=== PATIENT | female | born 1990 | race Caucasian/White ===

== ENCOUNTER 2021-10-01 18:23 | Emergency (ER) | payer SELFPAY ==
[2021-10-01 19:45] LABS: CORONAVIRUS COVID-19 NAA NEGATIVE (NEGATIVE)
[2021-10-01] MEDS ORDERED: Ondansetron 4 MG/2 ML SDV IVPUSH ONE (19:51)
[2021-10-01] MEDS ORDERED: HYDROmorphone 0.5 MG/0.5 ML Syringe IVPUSH ONE (19:51)
[2021-10-01] MEDS ORDERED: Nitrofurantoin Monohydrate/Macrocrystalline 100 MG Cap PO STA (19:51)
--- NOTE | 2021-10-01 19:57 | EDM.PDOC ---
ED HPI GENERAL MEDICAL PROBLEM - General Chief Complaint: Gastrointestinal Problem Stated Complaint: R SIDE ABDOMINAL PAIN Time Seen by Provider: 10/01/21 19:30 Source of Information: Reports: Patient, Significant Other (Boyfriend) History Limitations: Reports: No Limitations - History of Present Illness INITIAL COMMENTS - FREE TEXT/NARRATIVE: Ms. Bello is a very pleasant 31-year-old woman who now presents the ED stating that she developed sharp/stabbing right lower quadrant/pelvic pain 4 days ago, on 09/28/2021, which has been coming and going ever since. When present, it last for a few hours, then recurs within less than 1 hour. She has not identified any modifiers. She had some watery diarrhea on the second day of her symptoms, but has felt constipated since. No associated dysuria or urinary frequency. The patient states that she has been taking acetaminophen, and also took some omeprazole, which did not help her symptoms. The patient states that she has had similar symptoms many times in the past. Her LMP was approximately 09/18/2021. At triage, the patient was found to be hemodynamically stable, afebrile, saturating 93% on room air. She appears to be comfortable, in no acute distress. Her last oral intake was around 14:00 this afternoon. Prior to Monday, the patient denies having a recent fever, chills, sore throat, ear pain, nasal or sinus congestion, cough, dyspnea, chest pain, palpitations, nausea, vomiting, constipation, diarrhea, abdominal pain, urinary symptoms, recent weight gain or weight loss, recent bloody bowel movements or black bowel movements, recent joint aches, headaches, or rashes. The patient does not have a PCP or [facility]. She has not received a COVID vaccination, nor an influenza vaccination this se ason. Abdominal Pain Score (Numeric/FACES): 3 - Related Data Allergies Allergy/AdvReac Type Severity Reaction Status Date / Time No Known Allergies Allergy Verified 10/01/21 20:14 Home Meds: Home Meds Levofloxacin 1 tab PO QPM #6 tablet 10/01/21 [Rx] Past Medical History - Past Surgical History HEENT Surgical History: Reports: Oral Surgery (dental extractions) Cardiovascular Surgical History: Reports: Other (See Below) (Coronary angiogram at 15 years old -> clean) Social & Family History - Tobacco Use Tobacco Use Status *Q: Current Every Day Tobacco User Years of Tobacco use: 15 Packs/Tins Daily: 0.5 Packs/Tins Daily Comment: Down from 1 ppd Tobacco Use Comment: Started smoking 2006 - Caffeine Use Caffeine Use: Reports: Coffee, Energy Drinks, Soda - Alcohol Use Alcohol Use History: Yes Alcohol Use Frequency: Socially (occasionally to excess) - Recreational Drug Use Recreational Drug Use: Yes Drug Use in Last 12 Months: Yes Recreational Drug Type: Reports: Cocaine (last snorted around 2016), Marijuana/Hashish (smokes every other day) - Living Situation & Occupation Living situation: Reports: Single, with Family Occupation: Employed ([employer]) ED ROS GENERAL - Review of Systems Review Of Systems: Comprehensive ROS is negative, except as noted in HPI. ED EXAM, GI/ABD - Physical Exam Exam: See Below Exam Limited By: No Limitations General Appearance: Alert, No Apparent Distress, Thin Eyes: Bilateral: Normal Appearance, EOMI Ears: Normal External Exam, Hearing Grossly Normal Nose: Normal Inspection Throat/Mouth: Normal Inspection, Normal Lips, Normal Voice, No Airway Compromise Head: Atraumatic, Normocephalic Neck: Normal Inspection, Full Range of Motion Respiratory/Chest: No Respiratory Distress, Lungs Clear, Normal Breath Sounds, No Accessory Muscle Use Cardiovascular: Normal Peripheral Pulses, Regular Rate, Rhythm, No Edema, No Gallop, No JVD, No Murmur, No Rub GI/Abdominal Exam: Normal Bowel Sounds, Soft, No Organomegaly, No Distention, No Abnormal Bruit, No Mass, Tender (The greatest tenderness is in the right pelvis, with additional tenderness suprapubically. Essentially nontender elsewhere. Rovsing's sign, obturator sign, and psoas sign absent. Mild pain elicited with heel drop.) Back Exam: Normal Inspection, Full Range of Motion, CVA Tenderness (R). No: CVA Tenderness (L) Extremities: Normal Inspection, Normal Range of Motion, No Pedal Edema, Normal Capillary Refill Neurological: Alert, Oriented, Normal Cognition, No Motor/Sensory Deficits Psychiatric: Normal Affect Skin Exam: Warm, Dry, Intact, Normal Color, No Rash Course - Vital Signs Last Recorded V/S: Last Vital Signs Temp 36.7 C 10/01/21 19:03 Pulse 94 10/01/21 19:03 Resp 15 10/01/21 19:03 BP 122/83 10/01/21 19:03 Pulse Ox 93 L 10/01/21 19:03 - Orders/Labs/Meds Orders: Active Orders 24 hr Category Date Time Status Abdomen Pelvis w Cont [CT] Stat Exams 10/01/21 19:50 Taken CULTURE URINE [MREF] Stat Lab 10/01/21 18:56 Received Sodium Chloride 0.9% [Normal Saline] 1,000 ml Med 10/01/21 20:00 Active IV ASDIRECTED Medication Orders Sodium Chloride (Normal Saline) 1,000 mls @ 150 mls/hr IV ASDIRECTED ADAM Last Admin: 10/01/21 20:15 Dose: 150 mls/hr Documented by: DOMINGO Labs: Laboratory Tests 10/01/21 10/01/21 10/01/21 Range/Units 18:56 18:56 18:56 WBC (3.98-10.04) K/mm3 RBC (3.98-5.22) M/mm3 Hgb (11.2-15.7) gm/dl Hct (34.1-44.9) % MCV (79.4-94.8) fl MCH (25.6-32.2) pg MCHC (32.2-35.5) g/dl RDW Std Deviation (36.4-46.3) fL Plt Count (182-369) K/mm3 MPV (9.4-12.3) fl Neutrophils % (Manual) (40-60) % Band Neutrophils % (0-10) % Lymphocytes % (Manual) (20-40) % Atypical Lymphs % % Monocytes % (Manual) (2-10) % Eosinophils % (Manual) (0.7-5.8) % Basophils % (Manual) (0.1-1.2) Platelet Estimate RBC Morph Comment Sodium (136-145) mEq/L Potassium (3.5-5.1) mEq/L Chloride (98-107) mEq/L Carbon Dioxide (21-32) mEq/L Anion Gap (5-15) BUN (7-18) mg/dL Creatinine (0.55-1.02) mg/dL Est Cr Clr Drug Dosing Estimated GFR (MDRD) (>60) mL/min BUN/Creatinine Ratio (14-18) Glucose (70-99) mg/dL Calcium (8.5-10.1) mg/dL Urine Color Yellow (Yellow) Urine Appearance Cloudy H (Clear) Urine pH 6.0 (5.0-8.0) Ur Specific [place] 1.020 (1.005-1.030) Urine Protein 1+ H (Negative) Urine Glucose (UA) Negative (Negative) Urine Ketones Trace H (Negative) Urine Occult Blood Trace-intact H (Negative) Urine Nitrite Positive H (Negative) Urine Bilirubin Negative (Negative) Urine Urobilinogen 1.0 (0.2-1.0) Ur Leukocyte Esterase 1+ H (Negative) Urine RBC 5-10 H (0-5) /hpf Urine WBC 50-75 H (0-5) /hpf Ur Squamous Epith Cells 10-20 H (0-5) /hpf Urine Bacteria Many H (FEW) /hpf Urine Mucus Few (FEW) /hpf Urine HCG, Qual Negative (NEGATIVE) Influenza Type A RNA Negative (NEGATIVE) Influenza Type B RNA Negative (NEGATIVE) SARS-CoV-2 RNA (SANJEEV) Negative (NEGATIVE) 10/01/21 10/01/21 Range/Units 20:00 20:00 WBC 14.32 H (3.98-10.04) K/mm3 RBC 4.49 (3.98-5.22) M/mm3 Hgb 13.8 (11.2-15.7) gm/dl Hct 41.7 (34.1-44.9) % MCV 92.9 (79.4-94.8) fl MCH 30.7 (25.6-32.2) pg MCHC 33.1 (32.2-35.5) g/dl RDW Std Deviation 41.9 (36.4-46.3) fL Plt Count 173 L (182-369) K/mm3 MPV 10.4 (9.4-12.3) fl Neutrophils % (Manual) 89 H (40-60) % Band Neutrophils % 2 (0-10) % Lymphocytes % (Manual) 6 L (20-40) % Atypical Lymphs % 2 % Monocytes % (Manual) 1 L (2-10) % Eosinophils % (Manual) 0 L (0.7-5.8) % Basophils % (Manual) 0 L (0.1-1.2) Platelet Estimate Adequate RBC Morph Comment Normal Sodium 138 (136-145) mEq/L Potassium 3.6 (3.5-5.1) mEq/L Chloride 100 (98-107) mEq/L Carbon Dioxide 27 (21-32) mEq/L Anion Gap 14.6 (5-15) BUN 10 (7-18) mg/dL Creatinine 0.9 (0.55-1.02) mg/dL Est Cr Clr Drug Dosing TNP Estimated GFR (MDRD) > 60 (>60) mL/min BUN/Creatinine Ratio 11.1 L (14-18) Glucose 96 (70-99) mg/dL Calcium 8.9 (8.5-10.1) mg/dL Urine Color (Yellow) Urine Appearance (Clear) Urine pH (5.0-8.0) Ur Specific [place] (1.005-1.030) Urine Protein (Negative) Urine Glucose (UA) (Negative) Urine Ketones (Negative) Urine Occult Blood (Negative) Urine Nitrite (Negative) Urine Bilirubin (Negative) Urine Urobilinogen (0.2-1.0) Ur Leukocyte Esterase (Negative) Urine RBC (0-5) /hpf Urine WBC (0-5) /hpf Ur Squamous Epith Cells (0-5) /hpf Urine Bacteria (FEW) /hpf Urine Mucus (FEW) /hpf Urine HCG, Qual (NEGATIVE) Influenza Type A RNA (NEGATIVE) Influenza Type B RNA (NEGATIVE) SARS-CoV-2 RNA (SANJEEV) (NEGATIVE) Meds: Medications Generic Name Dose Route Start Last Admin Trade Name Freq PRN Reason Stop Dose Admin Sodium Chloride 1,000 mls @ 150 mls/hr 10/01/21 20:00 10/01/21 20:15 Normal Saline IV 150 mls/hr ASDIRECTED ADAM Administration Discontinued Medications Generic Name Dose Route Start Last Admin Trade Name Freq PRN Reason Stop Dose Admin Diatrizoate Meglum/Diatrizoate Sod 120 ml 10/01/21 21:07 10/01/21 21:08 Diatrizoate Meglumine/Diatrizoate Sodium 37% 120 Ml Bottle PO 10/01/21 21:08 60 ml ONETIME ONE Administration Hydromorphone HCl 0.5 mg 10/01/21 19:51 10/01/21 20:17 Hydromorphone 0.5 Mg/0.5 Ml Syringe IVPUSH 01/07/22 19:52 0.5 mg ONETIME ONE Administration Iopamidol 100 ml 10/01/21 19:58 10/01/21 21:08 Iopamidol 612 Mg/Ml 100 Ml Bottle IVPUSH 10/01/21 19:59 100 ml ONETIME ONE Administration Levofloxacin 750 mg 10/01/21 23:16 Levofloxacin 750 Mg Tab PO 10/01/21 23:17 ONETIME STA Nitrofurantoin Macrocrystals 100 mg 10/01/21 19:51 10/01/21 20:15 Nitrofurantoin Monohydrate/Macrocrystalline 100 Mg Cap PO 10/01/21 19:52 100 mg ONETIME STA Administration Ondansetron HCl 4 mg 10/01/21 19:51 10/01/21 20:16 Ondansetron 4 Mg/2 Ml Sdv IVPUSH 10/01/21 19:52 4 mg ONETIME ONE Administration Sodium Chloride 10 ml 10/01/21 19:58 10/01/21 21:09 Sodium Chloride 0.9% 10 Ml Sdv FLUSH 10/01/21 19:59 10 ml ONETIME ONE Administration - Re-Assessments/Exams Free Text/Narrative Re-Assessment/Exam: 10/01/21 19:52 A urinalysis, urine test, and swab for the SARS-CoV-2 virus and influenza A + B viruses was obtained at triage. The urinalysis is remarkable for trace occult blood with 5-10 RBCs, 1+ leukocyte esterase with 50-75 WBCs, nitrate positive with many bacteria, and 10-20 squamous epithelial cells. The urine test is negative. The swab for the SARS-CoV-2 virus and influenza A + B viruses is negative. The urinalysis is consistent with a UTI. A urine culture has been ordered. The patient's physical exam suggests a right ovarian cyst, given the location of her main pain, while the right CVA tenderness is more suggestive of pyelonephritis, however, the patient has not had a fever or recent nausea or vomiting, and until I percussed her right flank, she had not mentioned anything about having right flank pain. Additionally, I cannot rule out appendicitis, therefore I have ordered some blood work and a CT of the abdomen and pelvis with oral and IV contrast to make sure. In the meantime, the patient will be treated with some IV Dilaudid, IV Zofran, IV fluid, and oral nitrofurantoin. 10/01/21 21:09 The patient's CBC is remarkable for mild leukocytosis of 14.32, and mild thrombocytopenia of 173,000, and is otherwise unremarkable. Her BMP is unremarkable. 10/01/21 23:13 CT of the abdomen and pelvis with oral and IV contrast is read by [facility] as: 1. Abnormal right nephrogram most compatible with pyelonephritis, please correlate clinically. 2. No evidence for acute appendicitis. Based on the above, I will start the patient on levofloxacin. 10/01/21 23:20 Test results discussed with the patient. As above, it appears that the patient is suffering from right pyelonephritis. I will submit a prescription for levofloxacin for the patient to complete a 7-day course. She is to stay adequately hydrated. She may take OTC ibuprofen as needed for discomfort. Departure - Departure Time of Disposition: 23:22 Disposition: Home, Self-Care 01 Condition: Good Clinical Impression: Pyelonephritis of right kidney - Discharge Information *PRESCRIPTION DRUG MONITORING PROGRAM REVIEWED*: Not Applicable *COPY OF PRESCRIPTION DRUG MONITORING REPORT IN PATIENT INGRID: Not Applicable Referrals: PCP,Not In Area [Primary Care Provider] - Forms: ED Department Discharge Additional Instructions: You were seen in the emergency room after developing sharp/stabbing lower right abdominal pain on Monday. Work-up in the ER included several blood tests, a urinalysis, a urine test, a swab for the SARS-CoV-2 virus and influenza A + B viruses, and a CT of your abdomen and pelvis with oral and IV contrast. Your urinalysis indicated that you have a urinary tract infection, and the CT scan found that the infection went up to your right kidney, a condition known as pyelonephritis. You have been started on the antibiotic levofloxacin (Levaquin), and a prescription for levofloxacin has been sent to the [facility], located just south and across the [address] from [facility]. Take 1 tablet of levofloxacin every evening, starting tomorrow evening, 10/02/2021, as prescribed. Finish the entire prescription unless told otherwise by a doctor. Stay adequately hydrated. It does not really matter what type of fluid you drink. If any other problems, including worsening of your symptoms, or vomiting such that you cannot keep the levofloxacin down, please do not hesitate to return to the ER. Sepsis Event Note (ED) - Focused Exam Vital Signs: Vital Signs Temp Pulse Resp BP Pulse Ox 10/01/21 19:03 36.7 C 94 15 122/83 93 L - My Orders Last 24 Hours: My Active Orders 10/01/21 19:50 Abdomen Pelvis w Cont [CT] Stat 10/01/21 20:00 Sodium Chloride 0.9% [Normal Saline] 1,000 ml IV ASDIRECTED - Assessment/Plan Last 24 Hours: My Active Orders 10/01/21 19:50 Abdomen Pelvis w Cont [CT] Stat 10/01/21 20:00 Sodium Chloride 0.9% [Normal Saline] 1,000 ml IV ASDIRECTED
[2021-10-01] MEDS ORDERED: Iopamidol 612 MG/ML 100 ML Bottle IVPUSH ONE (19:58)
[2021-10-01] MEDS ORDERED: Sodium Chloride 0.9% 1,000 ML IV SCH (20:00)
[2021-10-01] MEDS: Sodium Chloride 0.9% 10 ML SDV FLUSH ONE ×2 (20:19→21:09)
[2021-10-01] MEDS ORDERED: Diatrizoate Meglumine/Diatrizoate Sodium 37% 120 ML Bottle PO ONE (21:07)
[2021-10-01] MEDS ORDERED: Levofloxacin 750 MG Tab PO STA (23:16)
--- NOTE | 2021-10-04 08:49 | CT ---
EXAM: CT ABDOMEN PELVIS WITH CONTRAST LOCATION: [facility] DATE/TIME: 10/01/2021 8:00 PM INDICATION: Rlq pain and tenderness. nausea and vomiting. eval for appendicitis COMPARISON: None. TECHNIQUE: CT scan of the abdomen and pelvis was performed following injection of IV contrast. Multiplanar reformats were obtained. Dose reduction techniques were used. CONTRAST: Isovue 300 95mL FINDINGS: LOWER CHEST: Normal. HEPATOBILIARY: Normal. PANCREAS: Normal. SPLEEN: Normal. ADRENAL GLANDS: Normal. KIDNEYS/BLADDER: Heterogeneous right nephrogram with alternating areas of normal normal in decreased parenchymal enhancement. No hydronephrosis. Left kidney appears normal. Urinary bladder appears normal. No urinary tract calcification although decreased sensitivity secondary to excreted contrast in the collecting systems and ureters. BOWEL: No free air, free fluid, or inflammatory change. Normal caliber appendix. No obstruction. LYMPH NODES: Normal. VASCULATURE: Unremarkable. PELVIC ORGANS: Normal. MUSCULOSKELETAL: Normal. IMPRESSION: 1. Abnormal right nephrogram most compatible with pyelonephritis, please correlate clinically. 2. No evidence for acute appendicitis. SIGNED BY: Teo Garrido MD 10/01/2021 10:25 PM [facility]
== END 2021-10-01 23:35 | disposition home or self-care (01) ==
LOC: JD.ED 18:23
DX: N12 Tubulo-interstitial nephritis, not specified as acute or chronic (principal); Z72.0 Tobacco use; Z20.822 Contact with and (suspected) exposure to COVID-19
CPT/HCPCS: 0240U; 36415; 74177; 80048; 81001; 81025; 85007; 85027; 87086; 87088; 87186; 96374; 96375; 99284; A9270; J1170; J2405; J7030; Q9963; Q9967; 99285

== ENCOUNTER 2021-10-23 03:23 | Emergency (ER) | payer BC ==
[2021-10-23] MEDS ORDERED: Acetaminophen 325 MG Tab PO ONE (04:24)
== END 2021-10-23 06:17 | disposition home or self-care (01) ==
LOC: JD.ED 03:23
DX: S09.90XA Unspecified injury of head, initial encounter (principal); S00.12XA Contusion of left eyelid and periocular area, initial encounter; H11.32 Conjunctival hemorrhage, left eye; Z72.0 Tobacco use; W50.1XXA Accidental kick by another person, initial encounter; Y92.009 Unspecified place in unspecified non-institutional (private) residence as the place of occurrence of the external cause
CPT/HCPCS: 70450; 70486; 99284; A9270; 99283

== ENCOUNTER 2022-03-18 01:23 | Emergency (ER) | payer BC ==
[2022-03-18] MEDS ORDERED: Lidocaine 1% 5 ML VIAL INJECT ONE (02:12)
[2022-03-18] MEDS ORDERED: Ibuprofen 400 MG Tab PO ONE (02:12)
[2022-03-18] MEDS ORDERED: Lidocaine 1% with EPINEPHrine 1:100,000 10 ML MDV INJECT ONE (02:20)
[2022-03-18] MEDS ORDERED: Lidocaine 1% 10 ML MDV INJECT ONE (02:21)
== END 2022-03-18 03:00 | disposition home or self-care (01) ==
LOC: JD.ED 01:23
DX: S01.112A Laceration without foreign body of left eyelid and periocular area, initial encounter (principal); F17.210 Nicotine dependence, cigarettes, uncomplicated; W22.8XXA Striking against or struck by other objects, initial encounter
CPT/HCPCS: 12011; 99282; A9270

== ENCOUNTER 2023-09-05 12:03 | Inpatient (IN) | payer BC, OTHER ==
[2023-09-05] MEDS ORDERED: Sodium Chloride 0.9% 10 ML Syringe FLUSH ONE (12:57)
[2023-09-05] MEDS ORDERED: Iopamidol 612 MG/ML 100 ML Bottle IVPUSH ONE (12:57)
[2023-09-05] MEDS ORDERED: HYDROmorphone 0.5 MG/0.5 ML Syringe IVPUSH ONE (13:57)
[2023-09-05] MEDS ORDERED: Ondansetron 4 MG/2 ML SDV IVPUSH ONE (13:57)
[2023-09-05] MEDS ORDERED: Piperacillin/Tazobactam 4.5 GM in Sodium Chloride 0.9% 100 ML IV ONE (13:59)
[2023-09-05] MEDS ORDERED: Sodium Chloride 0.9% 1,000 ML IV SCH ×2 (14:00→15:45)
[2023-09-05 14:29] LABS: BASOPHILS PERCENT AUTO 0.2 % (0.0-1.0); EOSINOPHILS ABSOLUTE AUTO 0.1 K/mm3 (0.0-0.4); EOSINOPHILS PERCENT AUTO 0.8 % (0.0-6.0); HEMATOCRIT 36.7 % (37.0-47.0); HEMOGLOBIN 12.4 gm/dl (12.0-16.0); IMMATURE GRAN ABSOLUTE AUTO 0.07 K/mm3 (0.00-0.05); IMMATURE GRAN PERCENT AUTO 0.5 % (0.0-0.4); LYMPHOCYTES ABSOLUTE AUTO 1.9 K/mm3 (1.0-4.8); LYMPHOCYTES PERCENT AUTO 12.5 % (24.0-44.0); MEAN CORPUSCULAR HEMOGLOBIN 31.8 pg (28.0-32.0); MEAN CORPUSCULAR HGB CONC 33.8 g/dl (32.0-36.0); MEAN CORPUSCULAR VOLUME 94.1 fl (83.0-99.0); MEAN PLATELET VOLUME 10.1 fl (9.4-12.3); MONOCYTES ABSOLUTE AUTO 1.3 K/mm3 (0.0-0.8); MONOCYTES PERCENT AUTO 8.6 % (0.0-8.0); NEUTROPHILS ABSOLUTE AUTO 11.8 K/mm3 (1.8-7.7); NEUTROPHILS PERCENT AUTO 77.4 % (41.0-71.0); PLATELET COUNT,PLT 233 K/mm3 (150-400); WHITE BLOOD CELL COUNT,WBC 15.25 K/mm3 (3.9-11.3)
[2023-09-05 14:58] LABS: A/G RATIO 0.8 (1-2); ALBUMIN 2.9 g/dl (3.4-5.0); ANION GAP 12.7 (5-15); BILIRUBIN TOTAL 1.1 mg/dL (0.2-1.0); BUN/CREATININE RATIO 8.6 (14-18); CALCIUM 8.5 mg/dL (8.5-10.1); CREATININE 0.7 mg/dL (0.55-1.02); EST CRCL DRUG DOSING (CG) 96.83 mL/min; POTASSIUM,K 3.7 mEq/L (3.5-5.1); PROTEIN TOTAL,TP 6.4 g/dl (6.4-8.2)
[2023-09-05] MEDS ORDERED: Ondansetron 4 MG/2 ML SDV IV PRN (16:11)
[2023-09-05] MEDS ORDERED: oxyCODONE 5 MG Tab PO PRN (16:11)
[2023-09-05] MEDS: Acetaminophen 325 MG Tab PO PRN (16:51)
[2023-09-05] MEDS: Ibuprofen 200 MG Tab PO PRN (19:50)
[2023-09-05] MEDS: Piperacillin/Tazobactam 4.5 GM in Sodium Chloride 0.9% 100 ML IV SCH (22:09)
[2023-09-05] MEDS: oxyCODONE 5 MG Tab PO PRN (22:10)
[2023-09-06] MEDS: oxyCODONE 5 MG Tab PO PRN ×6 (02:21→23:32)
[2023-09-06 05:24] LABS: HEMATOCRIT 34.2 % (37.0-47.0); HEMOGLOBIN 11.4 gm/dl (12.0-16.0); MEAN CORPUSCULAR HEMOGLOBIN 30.9 pg (28.0-32.0); MEAN CORPUSCULAR HGB CONC 33.3 g/dl (32.0-36.0); MEAN CORPUSCULAR VOLUME 92.7 fl (83.0-99.0); MEAN PLATELET VOLUME 10.2 fl (9.4-12.3); PLATELET COUNT,PLT 198 K/mm3 (150-400); RED BLOOD CELL COUNT 3.69 M/mm3 (4.10-5.30); WHITE BLOOD CELL COUNT,WBC 14.47 K/mm3 (3.9-11.3)
[2023-09-06 06:03] LABS: BUN/CREATININE RATIO 7.5 (14-18); C-REACTIVE PROTEIN 8.1 mg/dL (<1.0); CALCIUM 8.3 mg/dL (8.5-10.1); CREATININE 0.8 mg/dL (0.55-1.02); EST CRCL DRUG DOSING (CG) 85.01 mL/min
[2023-09-06] MEDS: Piperacillin/Tazobactam 4.5 GM in Sodium Chloride 0.9% 100 ML IV SCH ×3 (06:17→23:12)
[2023-09-06 06:36] LABS: ANION GAP 8.7 (5-15); POTASSIUM,K 3.7 mEq/L (3.5-5.1)
[2023-09-06] MEDS: Ibuprofen 200 MG Tab PO PRN ×2 (08:11→14:21)
[2023-09-06] MEDS: Acetaminophen 325 MG Tab PO PRN ×3 (08:12→23:31)
[2023-09-06] MEDS: Enoxaparin 40 MG/0.4 ML Syringe SUBCUT SCH (08:12)
[2023-09-06] MEDS ORDERED: methylPREDNISolone Sodium Succinate 125 MG/2 ML SDV IVPUSH ONE (15:00)
[2023-09-07] MEDS: Ibuprofen 200 MG Tab PO PRN ×2 (04:18→22:25)
[2023-09-07 05:25] LABS: ANION GAP 10.2 (5-15); BUN/CREATININE RATIO 8.6 (14-18); C-REACTIVE PROTEIN 10.5 mg/dL (<1.0); CALCIUM 8.7 mg/dL (8.5-10.1); CREATININE 0.7 mg/dL (0.55-1.02); EST CRCL DRUG DOSING (CG) 97.16 mL/min; POTASSIUM,K 4.2 mEq/L (3.5-5.1)
[2023-09-07 05:26] LABS: HEMATOCRIT 34.8 % (37.0-47.0); HEMOGLOBIN 11.8 gm/dl (12.0-16.0); MEAN CORPUSCULAR HEMOGLOBIN 30.9 pg (28.0-32.0); MEAN CORPUSCULAR HGB CONC 33.9 g/dl (32.0-36.0); MEAN CORPUSCULAR VOLUME 91.1 fl (83.0-99.0); MEAN PLATELET VOLUME 10.5 fl (9.4-12.3); PLATELET COUNT,PLT 239 K/mm3 (150-400); RED BLOOD CELL COUNT 3.82 M/mm3 (4.10-5.30); WHITE BLOOD CELL COUNT,WBC 14.08 K/mm3 (3.9-11.3)
[2023-09-07] MEDS: Piperacillin/Tazobactam 4.5 GM in Sodium Chloride 0.9% 100 ML IV SCH ×3 (06:42→22:24)
[2023-09-07] MEDS: Acetaminophen 325 MG Tab PO PRN ×4 (06:53→20:09)
[2023-09-07] MEDS: oxyCODONE 5 MG Tab PO PRN ×4 (06:53→20:09)
[2023-09-07] MEDS: Enoxaparin 40 MG/0.4 ML Syringe SUBCUT SCH (09:00)
[2023-09-08] MEDS: Acetaminophen 325 MG Tab PO PRN ×4 (03:52→22:18)
[2023-09-08] MEDS: oxyCODONE 5 MG Tab PO PRN ×5 (03:53→22:17)
[2023-09-08 05:25] LABS: ANION GAP 10.8 (5-15); BUN/CREATININE RATIO 13.8 (14-18); C-REACTIVE PROTEIN 3.9 mg/dL (<1.0); CALCIUM 8.5 mg/dL (8.5-10.1); CREATININE 0.8 mg/dL (0.55-1.02); EST CRCL DRUG DOSING (CG) 85.74 mL/min; POTASSIUM,K 3.8 mEq/L (3.5-5.1)
[2023-09-08 05:59] LABS: HEMATOCRIT 33.9 % (37.0-47.0); HEMOGLOBIN 11.4 gm/dl (12.0-16.0); MEAN CORPUSCULAR HEMOGLOBIN 31.9 pg (28.0-32.0); MEAN CORPUSCULAR HGB CONC 33.6 g/dl (32.0-36.0); MEAN PLATELET VOLUME 10.4 fl (9.4-12.3); PLATELET COUNT,PLT 216 K/mm3 (150-400); RED BLOOD CELL COUNT 3.57 M/mm3 (4.10-5.30); WHITE BLOOD CELL COUNT,WBC 13.46 K/mm3 (3.9-11.3)
[2023-09-08] MEDS: Ibuprofen 200 MG Tab PO PRN ×3 (06:09→20:39)
[2023-09-08] MEDS: Piperacillin/Tazobactam 4.5 GM in Sodium Chloride 0.9% 100 ML IV SCH ×3 (06:09→22:29)
[2023-09-08] MEDS: Enoxaparin 40 MG/0.4 ML Syringe SUBCUT SCH (09:15)
[2023-09-08] MEDS ORDERED: Iopamidol 612 MG/ML 30 ML SDV IVPUSH ONE (15:20)
[2023-09-09] MEDS: oxyCODONE 5 MG Tab PO PRN ×3 (02:24→11:04)
[2023-09-09] MEDS: Acetaminophen 325 MG Tab PO PRN ×2 (02:24→06:43)
[2023-09-09] MEDS: Ibuprofen 200 MG Tab PO PRN ×2 (02:25→09:02)
[2023-09-09 05:44] LABS: HEMATOCRIT 34.5 % (37.0-47.0); HEMOGLOBIN 11.8 gm/dl (12.0-16.0); MEAN CORPUSCULAR HEMOGLOBIN 31.7 pg (28.0-32.0); MEAN CORPUSCULAR HGB CONC 34.2 g/dl (32.0-36.0); MEAN CORPUSCULAR VOLUME 92.7 fl (83.0-99.0); MEAN PLATELET VOLUME 9.9 fl (9.4-12.3); PLATELET COUNT,PLT 223 K/mm3 (150-400); RED BLOOD CELL COUNT 3.72 M/mm3 (4.10-5.30); WHITE BLOOD CELL COUNT,WBC 12.58 K/mm3 (3.9-11.3)
[2023-09-09 06:23] LABS: ANION GAP 11.9 (5-15); C-REACTIVE PROTEIN 6.6 mg/dL (<1.0); CALCIUM 8.6 mg/dL (8.5-10.1); CREATININE 0.8 mg/dL (0.55-1.02); EST CRCL DRUG DOSING (CG) 85.74 mL/min; POTASSIUM,K 3.9 mEq/L (3.5-5.1)
[2023-09-09] MEDS: Piperacillin/Tazobactam 4.5 GM in Sodium Chloride 0.9% 100 ML IV SCH (06:46)
[2023-09-09] MEDS: Enoxaparin 40 MG/0.4 ML Syringe SUBCUT SCH (09:03)
== END 2023-09-09 12:28 | disposition home or self-care (01) | DRG 159 ==
LOC: JD.ED 12:03 → JD.MS 15:55
PROVIDERS: ADMIT Internal Medicine; ATTEND Internal Medicine
DX: K04.7 Periapical abscess without sinus (principal); F17.210 Nicotine dependence, cigarettes, uncomplicated; Z98.890 Other specified postprocedural states; Z79.899 Other long term (current) drug therapy
CPT/HCPCS: 36415; 70487; 70487-26; 80048; 80053; 83605; 85025; 85027; 86140; 87040; 94760; 96365; 96375; 99239; 99284; 99284-25; A9270-GY; J1170; J1650; J2405; J2543; J2930; J3490; J7030; Q9967

== ENCOUNTER 2023-10-30 00:22 | Emergency (ER) | payer SELFPAY ==
[2023-10-30] MEDS: Lidocaine 1% 10 ML MDV ONE (01:48)
[2023-10-30] MEDS: Diphtheria,Pertussis(Acell),Tetanus Vaccine 0.5 ML Syringe IM ONE (01:48)
[2023-10-30] MEDS: Lidocaine 1% 10 ML MDV INJECT STA (01:48)
== END 2023-10-30 01:52 | disposition home or self-care (01) ==
LOC: JD.ED 00:22
DX: S05.11XA Contusion of eyeball and orbital tissues, right eye, initial encounter (principal); S01.111A Laceration without foreign body of right eyelid and periocular area, initial encounter; Z23 Encounter for immunization; W01.0XXA Fall on same level from slipping, tripping and stumbling without subsequent striking against object, initial encounter
CPT/HCPCS: 12011; 70486; 70486-26; 90471; 90715; 99282; 99283-25; J3490